=== PATIENT | female | born 1935 | race Caucasian/White ===

== ENCOUNTER 2016-11-26 15:43 | Emergency (ER) | payer MEDICARE, OTHER ==
[~2016-11-26] VITALS: Ht 163.8 cm; Wt 84.1 kg
[2016-11-26 15:50] VITALS: BP 107/70; PULSE 84; RESP 16; O2SAT 98
[2016-11-26 16:20] LABS: BASOPHILS % (AUTO) 0.2 % (0-3); EOSINOPHILS % (AUTO) 0.2 % (0-5); MONOCYTES % (AUTO) 15.9 % (4-12); Mean Corpuscular Hemoglobin 31.8 pg (27.0-35.0); Mean Corpuscular Volume 92.3 fL (81-100); NEUTROPHILS % (AUTO) 58.4 % (40-74); Platelet Count 157 bil/L (150-400)
--- NOTE | 2016-11-26 16:34 | DRSVH ---
PROCEDURE: X-RAY CHEST, TWO VIEWS ([id number]) INDICATIONS: weakness, chills TECHNIQUE: 2 views of the chest were acquired. COMPARISON: None. FINDINGS: Surgical changes and devices: None. Lungs and pleura: No pleural effusions or pneumothorax. Lungs are clear. Mediastinum: Mediastinal contours are normal. Heart size is normal. Bones and chest wall: No suspicious bony abnormalities. Soft tissues appear unremarkable. IMPRESSION: No acute disease Dictated by: Master Mclean M.D. on 11/26/2016 at 16:32 Approved by: Master Mclean M.D. on 11/26/2016 at 16:32
[2016-11-26 17:07] LABS: Magnesium 2.1 mg/dL (1.6-2.6)
[2016-11-26 17:11] LABS: TROPONIN T < 0.010 ug/L (0.0-0.011)
--- NOTE | 2016-11-26 18:48 | ED.REPORT ---
HPI-General Illness Date of Service Nov 26, 2016 ED Provider: Lonnie Grey DO A healthy 80 year old female presents to the ED from Urgent Care with weakness onset today. The patient also reports nausea, loss of appetite, generalized myalgias, and chills recently. The patient had bronchitis three weeks ago, followed by a bladder infection, and has never fully recovered. At Urgent Care she was influenza negative with a normal urine sample. The patient denies vomiting, fever, sore throat, or rash. Nursing Notes Stated Complaint: FLU SYMPTOMS, FROM URGENT CARE Chief Complaint: General Complaint Nursing Notes Reviewed: Yes Allergies: Coded Allergies: No Known Allergies (Unverified , 11/26/16) General Time Seen by MD: 18:14 Chief Complaint Weakness Hx Obtained From: Patient Arrived By: Walk-in Sudden in Onset?: No Onset Occurred: 9 - 12 hours ago Symptom Duration: Since onset Location: : Back (Generalized myalgias) Quality: Painful Severity: Current: Moderate Severity: Maximum: Moderate Associated with: Reports: Nausea, Denies: Fever, Vomiting Pertinent Negative: Relieved by nothing Context Related History: Reports Recent infection Recent Healthcare: Recent doctor visit Similar Sx Previous: Yes Past Medical History Past Medical History None reported Past Surgical History None reported Smoking History Unknown if Ever Smoker Ambulatory Status Independent Review of Systems + loss of appetite Full Review of Systems Constitutional: Reports: Chills, Weakness - generalized, Denies: Fever Ears / Nose / Throat: Denies: Sore throat GI: Reports: Nausea, Denies: Vomiting Musculoskeletal: Reports: Myalgia (Generalized ) Skin: Denies Rash Complete sys rev & neg: except as marked. Physical Exam Vital Signs Vital Signs Date Time Temp Pulse Resp B/P Pulse Ox O2 Delivery O2 Flow Rate FiO2 11/26/16 22:05 78 20 216/89 99 11/26/16 21:48 88 20 130/55 100 Room Air 11/26/16 19:00 36.8 78 20 120/54 99 Room Air 11/26/16 15:50 36.9 84 16 107/70 98 Room Air Initial VS: Reviewed Head / Eyes: Atraumatic, Normocephalic ENT: Conjunctiva normal, No scleral icterus Neck: Supple, Full range of motion Respiratory: Breath sounds normal, Clear to auscultation, No respiratory distress Cardiovascular: Regular rate & rhythm, Heart sounds normal Abdomen / GI: Soft, Non-tender Extremities: Vascular intact, Neuro intact, No swelling Skin: Warm, Dry, No cyanosis Neurologic: Alert, Oriented, Nonfocal Psychiatric: Mood/affect normal, Behavior normal, Normal thought content General/Constitutional: Awake, Alert, No acute distress Mouth: Positive: Mucous membranes dry Interpretation & Diagnostics Lab Results Interpretation Result Diagram: 11/26/16 1610 11/26/16 2126 Test 11/26/16 16:10 11/26/16 19:59 11/26/16 20:26 11/26/16 21:26 White Blood Count 8.3th/mm3 (3.8-10.1) Red Blood Count 4.78mil/mm3 (3.90-5.20) Hemoglobin 15.2g/dL (12.0-15.6) Hematocrit 44.1% (35.0-46.0) Mean Corpuscular Volume 92.3fL (81-100) Mean Corpuscular Hemoglobin 31.8pg (27.0-35.0) Mean Corpuscular Hemoglobin Concent 34.5% (32.0-37.0) Red Cell Distribution Width 12.2% (12.3-15.4) Platelet Count 157bil/L (150-400) Neutrophils (%) (Auto) 58.4% (40-74) Lymphocytes (%) (Auto) 25.1% (14-46) Monocytes (%) (Auto) 15.9% (4-12) Eosinophils (%) (Auto) 0.2% (0-5) Basophils (%) (Auto) 0.2% (0-3) Magnesium Level 2.1mg/dL (1.6-2.6) Total Bilirubin 0.5mg/dL (0.0-1.2) Aspartate Amino Transf (AST/SGOT) 53U/L (0-50) Alanine Aminotransferase (ALT/SGPT) 53U/L (0-32) Alkaline Phosphatase 124U/L (25-165) Total Protein 8.1g/dL (6.4-8.4) Albumin 3.7g/dL (3.4-5.0) Hold Dill Top Tube Received (Received) Hold Urine Received (Received) Urine Color Yellow (YELLOW) Urine Appearance Clear (CLEAR,HAZY) Urine pH 6.5 (5.0-8.0) Urine Specific [place] 1.005 (1.003-1.035) Urine Protein Negativemg/dL (NEG,TRACE) Urine Glucose (UA) Negativemg/dL (NEGATIVE) Urine Ketones Negativemg/dL (NEGATIVE) Urine Occult Blood Trace (NEGATIVE) Urine Nitrite Negative (NEGATIVE) Urine Bilirubin Negative (NEGATIVE) Urine Urobilinogen Normalmg/dL (NORMAL) Urine Leukocyte Esterase Negative (NEGATIVE) Urine RBC 0-2/hpf (0-2) Urine WBC 0-5/hpf (0-5) Urine Epithelial Cells None/hpf (NONE-MOD) Urine Crystals None seen (NONE SEEN) Urine Bacteria None/hpf (NONE-FEW) Urine Hyaline Casts None/lpf (NONE) Urine Granular Casts None seen (NONE SEEN) Urine Waxy Casts None seen (NONE SEEN) Urine Red Blood Cell Casts None seen (NONE SEEN) Urine White Blood Cell Casts None seen (NONE SEEN) Urine Mucus None seen (None Seen) Urine Trichomonas None seen (NONE SEEN) Urine Yeast None (NONE SEEN) Urinalysis Comment None Urine Culture Reflexed Not indicated Sodium Level 132mEq/L (134-144) Potassium Level 3.9mEq/L (3.5-5.2) Chloride Level 101mEq/L (97-108) Carbon Dioxide Level 19mmol/L (18-29) Blood Urea Nitrogen 13mg/dL (8-27) Creatinine 0.83mg/dL (0.57-1.00) Estimat Glomerular Filtration Rate 95mL/min (>59) Glucose Level 105mg/dL (60-99) Calcium Level 7.6mg/dL (8.5-10.1) Troponin T 0.010ug/L (0.0-0.011) ECG Interpretation ECG Interpretation: Sinus rhythm rate 79 Low voltage, precordial leads Time: 17:36 Interpreted by: ED physician X-Ray Chest Interpretation Chest Xray Interpretation: IMPRESSION: No acute disease Dictated by: Master Mclean M.D. on 11/26/2016 at 16:32 View: AP & lat Interpretation / Wet Read by: Interpret - Radiologist Re-Eval/Medical Decision Med Decision/Clinical Course Patient presents with several days of nausea and decreased by mouth intake. She is found to be dehydrated on exam. Laboratory work shows mild hyponatremia and azotemia. She was treated with 2 L of saline Zofran. This worked marvelously. Discharge is asymptomatic. She was drinking liquids without difficulty. The hyponatremia had resolved. Her renal function was better and she felt ready to be discharged home. Social troponins were negative. Physical exam is otherwise very benign. I think she is going to do very well. Recommend close outpatient follow-up. Time of Eval: 20:38 Patient Status: Condition improved Re-Evaluation/Progress Note: Patient rechecked. Time of Eval: 22:14 Patient Status: Condition resolved, Complete relief Re-Evaluation/Progress Note: Patient feels much better and is ready to depart. Discussed with patient x-ray and lab results, diagnosis, and plan for discharge. Follow-up and return to the ER instructions given. Patient agrees with plan for care and all questions were addressed. Counseled Regarding: Diagnosis, Lab results, Need for follow-up, When/why to return to ED Discharge & Departure Primary Impression: Nausea Additional Impressions: Dehydration Hyponatremia Disposition: Home Discharge Condition All VS Reviewed: Yes Condition: Stable Patient Instructions: Acute Nausea and Vomiting (ED), Dehydration (ED), Hyponatremia (ED) Additional Instructions: Thank you for entrusting us with your care. Your exam today was reassuring. Please take Zofran, one every eight hours as prescribed. Drink plenty of liquids with sodium to increase your salt content. Read the after-care instructions given. Call your primary care provider tomorrow for a follow-up appointment this week. Return to the ER with any new or worsening symptoms. Referrals: [facility]CP (PCP) [facility] Attestation Portions of this note were transcribed by Marleni Ulrich. I, Dr. rGey, personally performed the history, physical exam, and medical decision-making; I reviewed and confirmed the accuracy of the information in the transcribed note. Signed by: Ingrid Lopez, 11/26/2016, 22:28 copies to: [facility] Lonnie Grey DO Nov 26, 2016 18:48 MARLENI ULRICH Nov 26, 2016 18:56
[2016-11-26] MEDS ORDERED: 0.9% Sodium Chloride 1,000 ML IV ONE ×2 (18:55→20:45)
[2016-11-26 19:00] VITALS: BP 120/54; PULSE 78; RESP 20; O2SAT 99
[2016-11-26] MEDS ORDERED: _Ondansetron ODT 4 mg Tablet PO PRN (20:45)
[2016-11-26 21:11] LABS: APPEARANCE,URINE CLEAR (CLEAR,HAZY); COLOR,URINE YELLOW (YELLOW)
[2016-11-26 21:12] LABS: OCCULT BLOOD,URINE TRACE (NEGATIVE); PH,URINE 6.5 (5.0-8.0); UROBILINOGEN,URINE NORMAL (NORMAL)
[2016-11-26 21:48] VITALS: BP 130/55; PULSE 88; RESP 20; O2SAT 100
[2016-11-26 21:53] LABS: TROPONIN T 0.01 ug/L (0.0-0.011)
[2016-11-26 22:05] VITALS: BP 216/89; PULSE 78; RESP 20; O2SAT 99
== END 2016-11-26 22:38 | disposition home or self-care (01) ==
LOC: SED 15:43
DX: R11.0 Nausea (principal); E86.0 Dehydration; E87.1 Hypo-osmolality and hyponatremia; R63.0 Anorexia; M79.1 Myalgia; R68.83 Chills (without fever); R79.89 Other specified abnormal findings of blood chemistry
CPT/HCPCS: 36415; 71020; 80048; 80053; 81000; 81002; 83735; 84484; 85025; 87804; 93005; 96360; 96361; 99285; G0463; J7030